=== PATIENT | male | born 1950 | race Caucasian/White ===

== ENCOUNTER 2019-07-25 10:00 | Inpatient (IN) | payer OTHER ==
[~2019-07-25] VITALS: Ht 170.2 cm; Wt 61.7 kg
[2019-07-25 10:04] VITALS: BP_SYST 147
[2019-07-25] MEDS ORDERED: GUAN2TAB PO (10:29)
[2019-07-25] MEDS ORDERED: DEXM20CP6 PO (10:29)
[2019-07-25 11:13] LABS: BASOPHILS % (AUTO) 0.1 % (0.0-2.0); HEMATOCRIT 57.6 % (36-54); HEMOGLOBIN 16.4 g/dL (14.0-18.0); LYMPHOCYTES # (AUTO) 0.6 K/uL (1.0-5.5); LYMPHOCYTES % (AUTO) 4.4 % (20.5-51.5); MEAN CORPUSCULAR HEMOGLOBIN 32 pg (27-31); MEAN CORPUSCULAR HGB CONC 29 % (32-36); MEAN CORPUSCULAR VOLUME 111 fL (79.0-98.0); MONOCYTES # (AUTO) 0.7 K/uL (0.0-1.0); MONOCYTES % (AUTO) 5.7 % (1.7-9.3); NEUTROPHILS # (AUTO) 11.4 K/uL (1.8-7.7); NEUTROPHILS % (AUTO) 89.8 % (40.0-70.0); PLATELET COUNT (AUTO) 337 K/uL (130-430); RED BLOOD CELL COUNT(AUTO) 5.18 MIL/uL (4.2-6.2); RED CELL DISTRIBUTION WIDTH 15.3 % (9.0-15.0); WHITE BLOOD COUNT (AUTO) 12.7 K/uL (4.8-10.8)
[2019-07-25 11:34] LABS: BILIRUBIN,URINE 1+ (NEGATIVE); BLOOD, URINE NEGATIVE (NEGATIVE); CLARITY/URINE SL CLOUDY (CLEAR); COLOR,URINE YELLOW (YELLOW); GLUCOSE,URINE 2+ (NEGATIVE); KETONES,URINE 1+ (NEGATIVE); LEUKOCYTE ESTERASE ,URINE NEGATIVE (NEGATIVE); NITRITE, URINE NEGATIVE (NEGATIVE); PROTEIN URINE NEGATIVE (NEGATIVE); UROBILINOGEN,URINE 0.2 (0.2-1.0)
[2019-07-25 11:37] LABS: ANION GAP 34 (5-15); CALCIUM 9.7 mg/dL (8.4-11.0); CHLORIDE 89 mmol/L (98-107); CREATININE 3.72 mg/dL (0.55-1.30); SODIUM SERUM 134 mmol/L (136-145); UREA NITROGEN, BLOOD 75 mg/dL (8-21)
[2019-07-25 11:47] LABS: ALANINE AMINOTRANSFERASE 126 U/L (12-78); ALBUMIN 3.3 g/dL (3.4-4.8); ASPARTATE AMINOTRANSFERASE 23 U/L (10-37); FREE T4 (FREE THYROXINE) 1.1 ng/dl (0.8-1.5); TOTAL BILIRUBIN 2.1 mg/dL (0.0-1.0)
[2019-07-25 11:56] LABS: POTASSIUM 6.5 mmol/L (3.5-5.1)
[2019-07-25 11:59] LABS: ALCOHOL, BLOOD < 3 mg/dL (<10); GFR AFRICAN AMERICAN 21 mL/min (>90); GLUCOSE 1375 mg/dL (70-99)
[2019-07-25 12:01] LABS: PROTHROMBIN TIME 10.2 SECS (9.5-12.5)
[2019-07-25 12:05] LABS: BARBITURATE, URINE NEGATIVE (NEG <=200); BENZODIAZEPINE, URINE NEGATIVE (NEG <=150); CANNABINOID, URINE NEGATIVE (NEG <=50); COCAINE, URINE NEGATIVE (NEG <=150); METHAMPHETAMINES SCREEN,URINE NEGATIVE (NEG <=500); OPIATE, URINE NEGATIVE (NEG <=100); PHENCYCLIDINE SCREEN,URINE NEGATIVE (NEG <=25); UR TRICYCLIC ANTIDEPRESSANTS NEGATIVE (NEG <=300); URINE AMPHETAMINE NEGATIVE (NEG <=500); URINE METHADONE NEGATIVE (NEG <=200); URINE OXYCODONE SCREEN NEGATIVE (NEG <=100); URINE PROPOXYPHENE SCREEN NEGATIVE (NEG <=300)
[2019-07-25] MEDS ORDERED: SODIUM POLYSTYRENE SULFONATE 15 GM/60 ML UDBTL PO ONE (12:15)
[2019-07-25] MEDS ORDERED: INSULIN REGULAR, HUMAN 10 UNITS/0.1 ML INJ IVP ONE (12:15)
[2019-07-25] MEDS ORDERED: cefTRIAXone 1 GM IVPB PREMIX 50 ML IV ONE (12:15)
[2019-07-25] MEDS ORDERED: NACL 0.9% 3,000 ML IV ONE (12:15)
[2019-07-25] MEDS ORDERED: CALCIUM CHLORIDE 1 GM/10 ML DISP.SYRIN (14 mEq Ca++/SYR) IVP ONE (12:15)
[2019-07-25 12:25] LABS: BACTERIA,URINE FEW /HPF (None Seen); RBC,URINE 0-3 /HPF (0-3); URINE AMORPHOUS URATE 1+ /HPF (None Seen); WBC,URINE 0-3 /HPF (0-3)
[2019-07-25] MEDS ORDERED: BISACODYL 5 MG TABLET.DR (DULCOLAX) PO ONE (14:45)
[2019-07-25] MEDS ORDERED: DEXTROSE 50% JECT 50 ML DISP.SYRIN IVP PRN (15:15)
[2019-07-25] MEDS ORDERED: NACL 0.9% 1,000 ML IV SCH (15:17)
[2019-07-25 15:26] LABS: CALCIUM 9.5 mg/dL (8.4-11.0); CREATININE 3.26 mg/dL (0.55-1.30); POTASSIUM 4.2 mmol/L (3.5-5.1)
[2019-07-25 15:28] VITALS: BP_SYST 145
[2019-07-25] MEDS ORDERED: ACETAMINOPHEN 325 MG TABLET PO PRN (15:30)
[2019-07-25] MEDS ORDERED: cloNIDine HCL 0.1 MG TABLET PO PRN (15:30)
[2019-07-25 15:31] VITALS: BP_SYST 145
[2019-07-25] MEDS ORDERED: PANTOPRAZOLE SODIUM 40 MG/VIAL (PROTONIX) IVP ONE (15:45)
[2019-07-25 15:58] LABS: ACETONE, SERUM SMALL (NEGATIVE)
[2019-07-25] MEDS ORDERED: NACL 0.9% 1,000 ML IV ONE ×2 (16:00→16:15)
[2019-07-25] MEDS: INSULIN REGULAR, HUMAN 100 UNITS in NS 99 ML IV PRN ×2 (16:20)
[2019-07-25] MEDS: 0.45% NACL 1,000 ML IV SCH ×2 (17:45→22:51)
[2019-07-25 18:56] LABS: CALCIUM 8.7 mg/dL (8.4-11.0); CREATININE 2.6 mg/dL (0.55-1.30); PHOSPHORUS 2.8 mg/dL (2.7-4.5); POTASSIUM 3.7 mmol/L (3.5-5.1)
[2019-07-25] MEDS: PANTOPRAZOLE SODIUM 40 MG/VIAL (PROTONIX) IVP SCH ×2 (20:29→21:00)
[2019-07-25 21:00] VITALS: BP_SYST 127
[2019-07-25 22:00] VITALS: BP_SYST 132
[2019-07-25 22:41] LABS: CALCIUM 8.4 mg/dL (8.4-11.0); CREATININE 2.15 mg/dL (0.55-1.30); PHOSPHORUS 3.3 mg/dL (2.7-4.5); POTASSIUM 3.3 mmol/L (3.5-5.1)
[2019-07-25 23:00] VITALS: BP_SYST 133
[2019-07-26] VITALS (22 sets, daily range): BP systolic 124–165
[2019-07-26 02:33] LABS: CALCIUM 8.4 mg/dL (8.4-11.0); CREATININE 1.68 mg/dL (0.55-1.30); POTASSIUM 3.2 mmol/L (3.5-5.1)
[2019-07-26 02:37] LABS: ALBUMIN 2.7 g/dL (3.4-4.8); PHOSPHORUS 2.9 mg/dL (2.7-4.5); TOTAL BILIRUBIN 1.4 mg/dL (0.0-1.0)
[2019-07-26] MEDS: 0.45% NACL 1,000 ML IV SCH ×3 (03:12→15:59)
[2019-07-26 07:21] LABS: BASOPHILS % (AUTO) 0.3 % (0.0-2.0); EOSINOPHILS % (AUTO) 0.2 % (0.0-4.0); HEMATOCRIT 43.2 % (36-54); HEMOGLOBIN 14.4 g/dL (14.0-18.0); LYMPHOCYTES # (AUTO) 1.3 K/uL (1.0-5.5); LYMPHOCYTES % (AUTO) 9.5 % (20.5-51.5); MEAN CORPUSCULAR HEMOGLOBIN 32 pg (27-31); MEAN CORPUSCULAR HGB CONC 33 % (32-36); MONOCYTES # (AUTO) 0.7 K/uL (0.0-1.0); MONOCYTES % (AUTO) 5.2 % (1.7-9.3); NEUTROPHILS # (AUTO) 11.2 K/uL (1.8-7.7); NEUTROPHILS % (AUTO) 84.8 % (40.0-70.0); PLATELET COUNT (AUTO) 193 K/uL (130-430); RED BLOOD CELL COUNT(AUTO) 4.58 MIL/uL (4.2-6.2); WHITE BLOOD COUNT (AUTO) 13.2 K/uL (4.8-10.8)
[2019-07-26 08:47] LABS: MEAN CORPUSCULAR VOLUME 94 fL (79.0-98.0)
[2019-07-26 08:48] LABS: RED CELL DISTRIBUTION WIDTH 13.2 % (9.0-15.0)
[2019-07-26] MEDS: PANTOPRAZOLE SODIUM 40 MG/VIAL (PROTONIX) IVP SCH ×2 (08:57→20:48)
[2019-07-26] MEDS ORDERED: FLU VACC QS2019-20 36MOS UP/PF 60 MCG/0.5 ML SYRINGE I.M. PRN (09:00)
[2019-07-26] MEDS ORDERED: FOLIC ACID 1 MG TABLET PO ONE (09:00)
[2019-07-26] MEDS ORDERED: THIAMINE HCL 100 MG TABLET PO ONE (09:00)
[2019-07-26 09:49] LABS: CALCIUM 8.1 mg/dL (8.4-11.0); CREATININE 1.38 mg/dL (0.55-1.30); PHOSPHORUS 2.7 mg/dL (2.7-4.5); POTASSIUM 3.5 mmol/L (3.5-5.1)
[2019-07-26] MEDS: cefTRIAXone 1 GM IVPB PREMIX 50 ML IV SCH (11:12)
[2019-07-26] MEDS: INSULIN REGULAR, HUMAN 100 UNITS in NS 99 ML IV PRN ×2 (11:33)
[2019-07-26] MEDS ORDERED: INSULIN GLARGINE 100 UNITS/ML 10 ML VIAL SUBCUT ONE (19:00)
[2019-07-26] MEDS ORDERED: KCL 40 mEq in 100 mL (PREMIX) 100 ML IV ONE (20:30)
[2019-07-26] MEDS: POTASSIUM CHLORIDE 40 MEQ in 0.45% NACL 1,000 ML IV SCH (20:48)
[2019-07-26 21:34] LABS: CALCIUM 7.9 mg/dL (8.4-11.0); CREATININE 1.05 mg/dL (0.55-1.30); POTASSIUM 3.1 mmol/L (3.5-5.1)
[2019-07-27] VITALS (17 sets, daily range): BP systolic 121–165
[2019-07-27] MEDS: INSULIN REGULAR, HUMAN 100 UNITS/ML, 10 ML VIAL (humuLIN R) SUBCUT PRN ×5 (00:16→23:36)
[2019-07-27] MEDS ORDERED: KCL 40 mEq in 100 mL (PREMIX) 100 ML IV ONE (00:39)
[2019-07-27] MEDS: POTASSIUM CHLORIDE 40 MEQ in 0.45% NACL 1,000 ML IV SCH ×2 (01:46→05:30)
[2019-07-27 06:44] LABS: BASOPHILS # (AUTO) 0.1 K/uL (0.0-0.2); BASOPHILS % (AUTO) 0.9 % (0.0-2.0); EOSINOPHILS # (AUTO) 0.1 K/uL (0.0-0.4); EOSINOPHILS % (AUTO) 1.1 % (0.0-4.0); HEMATOCRIT 41.5 % (36-54); HEMOGLOBIN 14.2 g/dL (14.0-18.0); LYMPHOCYTES # (AUTO) 1.4 K/uL (1.0-5.5); LYMPHOCYTES % (AUTO) 19.4 % (20.5-51.5); MEAN CORPUSCULAR HEMOGLOBIN 32 pg (27-31); MEAN CORPUSCULAR HGB CONC 34 % (32-36); MEAN CORPUSCULAR VOLUME 94 fL (79.0-98.0); MONOCYTES # (AUTO) 0.3 K/uL (0.0-1.0); MONOCYTES % (AUTO) 4.5 % (1.7-9.3); NEUTROPHILS # (AUTO) 5.4 K/uL (1.8-7.7); NEUTROPHILS % (AUTO) 74.1 % (40.0-70.0); PLATELET COUNT (AUTO) 125 K/uL (130-430); RED BLOOD CELL COUNT(AUTO) 4.41 MIL/uL (4.2-6.2); RED CELL DISTRIBUTION WIDTH 12.7 % (9.0-15.0); WHITE BLOOD COUNT (AUTO) 7.3 K/uL (4.8-10.8)
[2019-07-27 07:22] LABS: CREATININE 0.82 mg/dL (0.55-1.30); POTASSIUM 3.2 mmol/L (3.5-5.1)
[2019-07-27 07:28] LABS: ALBUMIN 2.2 g/dL (3.4-4.8); PHOSPHORUS 1.7 mg/dL (2.7-4.5); TOTAL BILIRUBIN 1.4 mg/dL (0.0-1.0)
[2019-07-27] MEDS: THIAMINE HCL 100 MG TABLET PO SCH (08:00)
[2019-07-27] MEDS: PANTOPRAZOLE SODIUM 40 MG/VIAL (PROTONIX) IVP SCH ×2 (08:00→21:35)
[2019-07-27] MEDS: FOLIC ACID 1 MG TABLET PO SCH (08:00)
[2019-07-27] MEDS ORDERED: POTASSIUM CHLORIDE 20 MEQ TAB.PRT.SR PO ONE (09:45)
[2019-07-27] MEDS: cefTRIAXone 1 GM IVPB PREMIX 50 ML IV SCH (11:13)
[2019-07-27] MEDS ORDERED: metFORMIN HCL 500 MG TABLET PO ONE (13:30)
[2019-07-27] MEDS ORDERED: INSULIN GLARGINE 100 UNITS/ML 10 ML VIAL SUBCUT ONE (16:00)
[2019-07-27] MEDS: metFORMIN HCL 500 MG TABLET PO SCH (17:18)
[2019-07-27 18:53] LABS: CALCIUM 8.2 mg/dL (8.4-11.0); CREATININE 0.83 mg/dL (0.55-1.30); PHOSPHORUS 1.7 mg/dL (2.7-4.5); POTASSIUM 3.4 mmol/L (3.5-5.1)
[2019-07-27] MEDS ORDERED: CITALOPRAM HYDROBROMIDE 20 MG TABLET PO SCH (21:00)
[2019-07-28] VITALS: BP_SYST 133
[2019-07-28] MEDS: INSULIN REGULAR, HUMAN 100 UNITS/ML, 10 ML VIAL (humuLIN R) SUBCUT PRN ×3 (06:21→18:08)
[2019-07-28 06:39] LABS: BASOPHILS % (AUTO) 0.4 % (0.0-2.0); EOSINOPHILS # (AUTO) 0.1 K/uL (0.0-0.4); EOSINOPHILS % (AUTO) 0.9 % (0.0-4.0); HEMATOCRIT 41.2 % (36-54); HEMOGLOBIN 13.8 g/dL (14.0-18.0); LYMPHOCYTES # (AUTO) 1.6 K/uL (1.0-5.5); LYMPHOCYTES % (AUTO) 27.7 % (20.5-51.5); MEAN CORPUSCULAR HEMOGLOBIN 32 pg (27-31); MEAN CORPUSCULAR HGB CONC 34 % (32-36); MEAN CORPUSCULAR VOLUME 94 fL (79.0-98.0); MONOCYTES # (AUTO) 0.3 K/uL (0.0-1.0); MONOCYTES % (AUTO) 5.3 % (1.7-9.3); NEUTROPHILS # (AUTO) 3.9 K/uL (1.8-7.7); NEUTROPHILS % (AUTO) 65.7 % (40.0-70.0); PLATELET COUNT (AUTO) 129 K/uL (130-430); RED BLOOD CELL COUNT(AUTO) 4.39 MIL/uL (4.2-6.2); RED CELL DISTRIBUTION WIDTH 12.9 % (9.0-15.0); WHITE BLOOD COUNT (AUTO) 5.9 K/uL (4.8-10.8)
[2019-07-28 06:43] LABS: CREATININE 0.72 mg/dL (0.55-1.30); POTASSIUM 3.5 mmol/L (3.5-5.1)
[2019-07-28 08:00] VITALS: BP_SYST 125
[2019-07-28] MEDS: THIAMINE HCL 100 MG TABLET PO SCH (08:01)
[2019-07-28] MEDS: PANTOPRAZOLE SODIUM 40 MG/VIAL (PROTONIX) IVP SCH ×2 (08:01→20:54)
[2019-07-28] MEDS: FOLIC ACID 1 MG TABLET PO SCH (08:01)
[2019-07-28] MEDS: metFORMIN HCL 500 MG TABLET PO SCH ×2 (08:01→18:01)
[2019-07-28] MEDS: cefTRIAXone 1 GM IVPB PREMIX 50 ML IV SCH (11:30)
[2019-07-28 12:25] VITALS: BP_SYST 132
[2019-07-28 16:31] VITALS: BP_SYST 135
[2019-07-28 20:05] VITALS: BP_SYST 117
[2019-07-28] MEDS: CITALOPRAM HYDROBROMIDE 20 MG TABLET PO SCH (20:54)
[2019-07-28] MEDS: INSULIN GLARGINE 100 UNITS/ML 10 ML VIAL SUBCUT SCH (21:10)
[2019-07-28 22:55] VITALS: BP_SYST 139
[2019-07-29] MEDS: INSULIN REGULAR, HUMAN 100 UNITS/ML, 10 ML VIAL (humuLIN R) SUBCUT PRN ×3 (00:47→17:13)
[2019-07-29 06:25] LABS: BASOPHILS % (AUTO) 0.2 % (0.0-2.0); EOSINOPHILS # (AUTO) 0.1 K/uL (0.0-0.4); EOSINOPHILS % (AUTO) 0.8 % (0.0-4.0); HEMOGLOBIN 14.1 g/dL (14.0-18.0); LYMPHOCYTES # (AUTO) 1.5 K/uL (1.0-5.5); LYMPHOCYTES % (AUTO) 15.5 % (20.5-51.5); MEAN CORPUSCULAR HEMOGLOBIN 31 pg (27-31); MEAN CORPUSCULAR HGB CONC 34 % (32-36); MEAN CORPUSCULAR VOLUME 93 fL (79.0-98.0); MONOCYTES # (AUTO) 0.5 K/uL (0.0-1.0); MONOCYTES % (AUTO) 5.5 % (1.7-9.3); NEUTROPHILS # (AUTO) 7.5 K/uL (1.8-7.7); RED BLOOD CELL COUNT(AUTO) 4.53 MIL/uL (4.2-6.2); RED CELL DISTRIBUTION WIDTH 12.3 % (9.0-15.0); WHITE BLOOD COUNT (AUTO) 9.6 K/uL (4.8-10.8)
[2019-07-29 07:30] LABS: PLATELET COUNT (AUTO) 99 K/uL (130-430)
[2019-07-29 08:00] VITALS: BP_SYST 118
[2019-07-29] MEDS: metFORMIN HCL 500 MG TABLET PO SCH ×2 (08:02→17:10)
[2019-07-29] MEDS: PANTOPRAZOLE SODIUM 40 MG/VIAL (PROTONIX) IVP SCH ×2 (08:02→20:45)
[2019-07-29] MEDS: FOLIC ACID 1 MG TABLET PO SCH (08:02)
[2019-07-29] MEDS: THIAMINE HCL 100 MG TABLET PO SCH (08:02)
[2019-07-29 11:33] VITALS: BP_SYST 112
[2019-07-29] MEDS: cefTRIAXone 1 GM IVPB PREMIX 50 ML IV SCH (12:06)
[2019-07-29 15:37] VITALS: BP_SYST 115
[2019-07-29 20:00] VITALS: BP_SYST 131
[2019-07-29] MEDS: CITALOPRAM HYDROBROMIDE 20 MG TABLET PO SCH (20:46)
[2019-07-29] MEDS: INSULIN GLARGINE 100 UNITS/ML 10 ML VIAL SUBCUT SCH (20:51)
[2019-07-30 00:08] VITALS: BP_SYST 125
[2019-07-30] MEDS: INSULIN REGULAR, HUMAN 100 UNITS/ML, 10 ML VIAL (humuLIN R) SUBCUT PRN ×2 (00:45→11:18)
[2019-07-30 07:50] LABS: BASOPHILS % (AUTO) 0.2 % (0.0-2.0); EOSINOPHILS # (AUTO) 0.1 K/uL (0.0-0.4); HEMATOCRIT 42.4 % (36-54); HEMOGLOBIN 14.2 g/dL (14.0-18.0); LYMPHOCYTES # (AUTO) 1.1 K/uL (1.0-5.5); LYMPHOCYTES % (AUTO) 21.5 % (20.5-51.5); MEAN CORPUSCULAR HEMOGLOBIN 31 pg (27-31); MEAN CORPUSCULAR HGB CONC 34 % (32-36); MEAN CORPUSCULAR VOLUME 93 fL (79.0-98.0); MONOCYTES # (AUTO) 0.3 K/uL (0.0-1.0); MONOCYTES % (AUTO) 5.8 % (1.7-9.3); NEUTROPHILS # (AUTO) 3.8 K/uL (1.8-7.7); NEUTROPHILS % (AUTO) 71.5 % (40.0-70.0); PLATELET COUNT (AUTO) 99 K/uL (130-430); RED BLOOD CELL COUNT(AUTO) 4.55 MIL/uL (4.2-6.2); RED CELL DISTRIBUTION WIDTH 12.5 % (9.0-15.0); WHITE BLOOD COUNT (AUTO) 5.3 K/uL (4.8-10.8)
[2019-07-30 08:00] VITALS: BP_SYST 116
[2019-07-30] MEDS: THIAMINE HCL 100 MG TABLET PO SCH (08:15)
[2019-07-30] MEDS: PANTOPRAZOLE SODIUM 40 MG/VIAL (PROTONIX) IVP SCH (08:16)
[2019-07-30] MEDS: metFORMIN HCL 500 MG TABLET PO SCH (08:16)
[2019-07-30] MEDS: FOLIC ACID 1 MG TABLET PO SCH (08:17)
[2019-07-30] MEDS ORDERED: CEPH-568 PO (09:29)
[2019-07-30] MEDS ORDERED: GLIP10TA11 PO (09:29)
[2019-07-30] MEDS ORDERED: METF-833 PO (09:29)
[2019-07-30] MEDS ORDERED: CEL20 PO (09:29)
[2019-07-30 10:47] VITALS: BP_SYST 128
[2019-07-30] MEDS: cefTRIAXone 1 GM IVPB PREMIX 50 ML IV SCH (11:14)
[2019-07-30 12:35] VITALS: BP_SYST 118
== END 2019-07-30 13:45 | disposition home health service (06) | DRG 871 ==
LOC: SED 10:00 → SIC 15:08 → SMU 07-27 12:48
PROVIDERS: ADMIT General Practice; ATTEND General Practice
DX: A41.9 Sepsis, unspecified organism (principal); G93.41 Metabolic encephalopathy; I21.A1 Myocardial infarction type 2; N17.0 Acute kidney failure with tubular necrosis; E11.10 Type 2 diabetes mellitus with ketoacidosis without coma; J96.00 Acute respiratory failure, unspecified whether with hypoxia or hypercapnia; N39.0 Urinary tract infection, site not specified; E87.2 Acidosis; E11.42 Type 2 diabetes mellitus with diabetic polyneuropathy; E86.0 Dehydration; E87.5 Hyperkalemia; F32.9 Major depressive disorder, single episode, unspecified; I10 Essential (primary) hypertension; Z87.442 Personal history of urinary calculi; Z91.19 Patient's noncompliance with other medical treatment and regimen
CPT/HCPCS: 36415; 36600; 70450-TC; 71045; 71250-TC; 74018; 80048; 80053; 80307; 81000-TC; 82009-TC; 82140-TC; 82803-TC; 82947-TC; 82962; 83036; 83605; 83690-TC; 83735-TC; 83880; 84100-TC; 84439; 84484; 85025; 85610-TC; 87040-TC; 87081; 93005; 99285; C9113; G0482; J0696; J1815; J3480; J7030